=== PATIENT | male | born 1980 | race Caucasian/White ===

== ENCOUNTER 2021-01-05 14:14 | Emergency (ER) | payer OTHER ==
[~2021-01-05] VITALS: Ht 162.6 cm; Wt 80.7 kg
[2021-01-05 14:20] VITALS: BP_SYST 135
[2021-01-05] MEDS: KETOROLAC TROMETHAMINE 60 MG/2 ML VIAL IM ONE (15:15)
[2021-01-05] MEDS ORDERED: NAPR-690 PO (15:22)
[2021-01-05 15:32] VITALS: BP_SYST 135
== END 2021-01-05 15:33 | disposition home or self-care (01) ==
LOC: SED 14:14
DX: R10.9 Unspecified abdominal pain (principal); X50.0XXA Overexertion from strenuous movement or load, initial encounter; Y93.89 Activity, other specified; Y92.89 Other specified places as the place of occurrence of the external cause; Y99.0 Civilian activity done for income or pay
CPT/HCPCS: 96372; 99283; J1885